=== PATIENT | male | born 1955 | race Two or more races ===

== ENCOUNTER 2020-08-28 16:06 | Outpatient (CLI) | payer OTHER | END 2020-08-28 17:14 | disposition home or self-care (01) | LOC: OFIC 805 16:06 | PROVIDERS: ATTEND Otolaryngology Otology & Neurotology | DX: K05.10 Chronic gingivitis, plaque induced (principal); H92.01 Otalgia, right ear; H69.81 Other specified disorders of Eustachian tube, right ear ==